=== PATIENT | male | born 1965 | race Caucasian/White ===

== ENCOUNTER → 2021-03-20 13:31 | Outpatient (CLI) | payer BC, SELFPAY | PROVIDERS: PCP Preventive Medicine Occupational Medicine; Referring Provider Internal Medicine Pulmonary Disease; Visit Provider Internal Medicine Pulmonary Disease | DX: U07.1 COVID-19 (principal) | CPT/HCPCS: 87635; C9803; U0005; U0003 ==

== ENCOUNTER 2021-03-21 10:49 | Outpatient (CLI) | payer BC, SELFPAY ==
[2021-03-21 11:03] VITALS: BP 147/102; PULSE 112; RESP 20; TEMP 37; O2SAT 95; BMI 43.2
[2021-03-21] MEDS: 0.9% Saline Lock 10 ML Syringe IV (11:05)
[2021-03-21 11:37] VITALS: BP 148/84; PULSE 97; RESP 16; TEMP 36.9; O2SAT 96
[2021-03-21 12:36] VITALS: BP 145/87; PULSE 93; RESP 18; TEMP 36.9; O2SAT 98
== END 2021-03-21 12:40 | disposition home or self-care (01) ==
LOC: MS3OUT 10:50 → MS3 10:50
PROVIDERS: PCP Preventive Medicine Occupational Medicine; Referring Provider Internal Medicine Pulmonary Disease; Visit Provider Internal Medicine Pulmonary Disease
DX: Z23 Encounter for immunization (principal); U07.1 COVID-19; E11.9 Type 2 diabetes mellitus without complications
CPT/HCPCS: J7050; M0245; Q0245; A4216

== ENCOUNTER 2024-05-20 09:04 | Observation (INO) | payer BC, SELFPAY ==
[2024-05-20] VITALS (9 sets, daily range): BP systolic 138–175; BP diastolic 74–101; PULSE 66–96; RESP 15–21; TEMP 36.1–36.8; O2SAT 95–98; BMI 45.8; BMI 42.3
--- NOTE | 2024-05-20 09:11 | EKG12_ITS ---
Test Reason : CHEST PAIN Blood Pressure : */* mmHG Vent. Rate : 82 BPM Atrial Rate : 82 BPM P-R Int : 166 ms QRS Dur : 84 ms QT Int : 374 ms P-R-T Axes : 48 -18 43 degrees QTcB Int : 436 ms Normal sinus rhythm Minimal voltage criteria for LVH, may be normal variant ( R in aVL ) Cannot rule out Anterior infarct , age undetermined Abnormal ECG Confirmed by Erick Pineda ([id number]), news videotape editor CARRIE URRUTIA ([id number]) on 05/24/2024 7:41:29 AM Referred By: Confirmed By: Erick Pineda
--- NOTE | 2024-05-20 09:11 | ED.VIS.CHEST ---
HPI History of Present Illness Chief Complaint: Chest Pain Narrative Narrative: 58-year-old male past medical history of diabetes, hypertension, presents with chest pain that has had intermittently over the last week. He states over the last week it was very brief, and in the midsternal to left side of his chest. It only lasted a few seconds, under minute if that. This morning, while he was at work, he states he was not stressed, no exertional component but he had a more persistent chest pain. He describes it as dull and achy, and it did radiate down his left arm or towards his left shoulder at least. He denies any nausea or vomiting associated with this pain, no shortness of breath, no other symptoms. His discomfort was persistent until squad arrived and they gave him nitroglycerin and aspirin. He is currently pain-free. [facility] Medical History (Updated 05/20/24 @ 13:27 by Clarence Munoz MD) Chest pain Hyperlipidemia associated with type 2 diabetes mellitus Diabetes mellitus Hypertension Home Medications ?Medication ?Instructions ?Recorded ?Last Taken ?Type amlodipine 10 mg-benazepril 40 mg 1 cap PO DAILY 03/21/21 Unknown History capsule chlorthalidone 25 mg tablet 25 mg PO DAILY 03/21/21 Unknown History glimepiride 4 mg tablet 4 mg PO DAILY 03/21/21 Unknown History metformin 1,000 mg tablet 1,000 mg PO BID 03/21/21 Unknown History empagliflozin 25 mg tablet 25 mg PO DAILY 05/20/24 Unknown History (Jardiance) insulin degludec 100 unit/mL (3 40 unit subcut QHS 05/20/24 Unknown History mL) subcutaneous pen (Tresiba FlexTouch U-100 insulin) sildenafil (pulm.hypertension) 20 20 - 100 mg PO PRN PRN sexual 05/20/24 Unknown History mg tablet activity Allergy/AdvReac Type Severity Reaction Status Date / Time codeine AdvReac dizziness Verified 03/21/21 10:57 Family History Mother CAD (coronary artery disease) Social History Smoking Status: Never smoker ROS ROS ED ROS Narrative Constitutional: No fever, no chills. HEENT: No sore throat. No neck pain. Cardiovascular: Left parasternal to left chest pain/discomfort type of chest pain. No palpitations. No pedal edema but has intermittent swelling of left lower extremity from remote injury and surgery. Respiratory: No cough, no shortness of breath. Abdominal: No abdominal pain. No nausea. No vomiting. Genitourinary: No dysuria. No hematuria. Musculoskeletal: No myalgias. No arthralgias. Neurologic: No headaches. No dizziness. No lightheadedness. EXAM Physical Exam Narrative Exam Narrative: Afebrile. Vital signs noted. Nontoxic-appearing. Does have elevated blood pressure initially at 175/101. Cardiovascular examination reveals a regular rate and rhythm. Lungs are clear to auscultation bilaterally. Abdomen is soft, nontender, without guarding or rebound. Neurological examination is nonfocal and nonlateralizing. No noted pedal edema bilaterally. Const Vital Signs: 05/20/24 09:04 05/20/24 09:12 05/20/24 11:04 Temperature 96.9 F L Temperature Source Temporal Pulse Rate 96 72 Respiratory Rate 18 21 H Blood Pressure 175/101 H 157/91 H Blood Pressure Mean 125 113 Pulse Ox 97 96 96 Oxygen Delivery Method Room Air Room Air Room Air 05/20/24 13:00 05/20/24 13:13 Temperature 98.2 F Temperature Source Pulse Rate 76 78 Respiratory Rate 15 19 H Blood Pressure 148/94 H 148/94 H Blood Pressure Mean 112 112 Pulse Ox 97 98 Oxygen Delivery Method Room Air Heart Score History: Moderately Suspicious ECG: Normal Age: >45 - <65 years Risk Factors: >/= 3 Risk Factors or History of CAD Troponin: >1 - <3 Normal Limit Score: 5 MDM MDM MDM Narrative Medical decision making narrative: Differential diagnosis includes but not limited to ACS versus pneumothorax versus aortic dissection versus pulmonary embolism. I have low suspicion for pulmonary embolism because the history and physical does not support this. He is currently pain-free and has already received nitroglycerin and aspirin per EMS. Comprehensive workup was pursued. EKG obtained interpreted by myself independently demonstrates normal sinus rhythm at 82 bpm without ectopy or acute ST changes. No STEMI. I reviewed his laboratory work and he has normal white count of 8.4, hemoglobin 16.4 with hematocrit 51.7, platelet count 231. Electrolyte panel is grossly unremarkable with a normal sodium of 140 and potassium 4.4. Creatinine normal at 0.9. Chest x-ray in 1 view interpreted by myself independently shows no acute process, no pneumonia, no pneumothorax, no widened mediastinum. I reviewed the radiology report which confirms my independent interpretation. Of significance, his initial high-sensitivity troponin is 49. Repeat at 2 hours is 61 for a delta of 12. As this is greater than 6, I feel that according to the high-sensitivity troponin that he has ruled in for ACS. I discussed the patient with Dr. Pineda with cardiology and the hospitalist. Dr. Pineda has discussed patient with Dr. Tellez, and patient will be taken to the catheterization lab from the emergency department. Cardiology did not want heparin or any other medications currently. However, he will require observation for recovery from the catheterization. I discussed patient with Dr. Negrete for observation in the PCU. Patient is in stable condition. History & Record Review Discussion w/independent historian: Patient and Family Lab Data Attestation: I reviewed the patient's lab results. Labs: Laboratory Results - last 24 hr 05/20/24 05/20/24 09:19 11:19 WBC 8.4 RBC 6.07 Hgb 16.4 Hct 51.7 MCV 85.2 MCH 27.0 MCHC 31.7 L RDW Std Deviation 44.4 H RDW Coeff of Lexa 15.0 H Plt Count 231 MPV 11.0 Immature Gran % (Auto) 0.200 Neut % (Auto) 63.9 Lymph % (Auto) 28.4 [place] % (Auto) 5.4 Eos % (Auto) 1.7 Baso % (Auto) 0.4 Absolute Neuts (auto) 5.4 Absolute Lymphs (auto) 2.38 Nucleated RBC % 0 Sodium 140 Potassium 4.4 Chloride Direct 104 Carbon Dioxide 22.2 Anion Gap 14 BUN 18 Creatinine 0.9 Estim Creat Clear Calc 132.64 Est GFR (MDRD) Non-Af 100 BUN/Creatinine Ratio 20.1 H Glucose 228 H Calcium 9.6 Troponin T High Sens 49 H Troponin T Hi Sens 2 Hr 61 H* Troponin T Hi Sens 2Hr Delta 12 Radiography Chest X-Ray - ED: 1 View, Read by ED Physician, Read by Radiologist and Normal Diagnostic Testing: Clinical Impression(s) from Imaging Studies Chest X-Ray 05/20/24 09:15 IMPRESSION: No active cardiopulmonary disease. Reading Location: [place] [id number] Management Discussion w/another healthcare provider: Hospitalist (Dr. Negrete) and [employer] Technical Assistant (Dr. Pineda, cardiology) Discharge Plan Dx/Rx/DC Orders Clinical Impression: Chest pain, Hypertension, Diabetes mellitus, Hyperlipidemia associated with type 2 diabetes mellitus, ACS (acute coronary syndrome) Disposition Disposition: Acute Care Hospital [facility]
--- NOTE | 2024-05-20 09:15 | RAD_ITS ---
PROCEDURE: CHEST 1 VIEW (PORTABLE) REASON FOR EXAM: Chest pain TECHNIQUE: Single frontal image including the chest. COMPARISON: None. FINDINGS: Lungs: Lungs clear of pneumonia and congestion. Pleura: No pleural effusions, thickening, or pneumothorax. Heart: Normal in size and configuration. Mediastinum/Bell: Unremarkable. Great vessels: Unremarkable. Bones/soft tissues: Unremarkable. RAD/Chest 1 View (Portable) IMPRESSION: No active cardiopulmonary disease. Reading Location: [place] [id number]
[2024-05-20 09:42] LABS: Absolute Lymphocyte Count 2.38 X10^3/uL (0.83-4.51); Absolute Neutrophil Count 5.4 X10^3/uL (2.0-7.7); Basophil# 0.03 X10^3/uL; Basophil% 0.4 % (0-1); Eosinophil# 0.14 X10^3/uL; Eosinophils% 1.7 % (0-5); Hematocrit 51.7 % (40-54); Hemoglobin 16.4 g/dL (13.0-16.5); Lymphocyte # 2.38 X10^3/ul (0.83-4.51); Lymphocyte % 28.4 % (19-41); Mean Corp Hgb Conc 31.7 g/dL (32-36); Mean Corpuscular Volume 85.2 fL (80-94); Monocyte# 0.45 X10^3/uL; Monocyte% 5.4 % (0-10); NRBC Flagged by Analyzer 0 % (0-5); Neutrophil # 5.36 X10^3/uL (2.7-7.7); Neutrophil % 63.9 % (47-70); Platelet Count 231 K/mm3 (150-450); RBC Distribution Width SD 44.4 fl (35.1-43.9); Red Blood Count 6.07 M/mm3 (4.6-6.2); White Blood Count 8.4 K/mm3 (4.4-11.0)
[2024-05-20 11:07] LABS: Troponin T High Sensitivity 49 ng/L (<=22)
[2024-05-20 12:15] LABS: Anion Gap 14 (5-15); BUN 18 mg/dL (4-19); BUN/Creat Ratio 20.1 RATIO (10-20); Calcium 9.6 mg/dL (7.6-11.0); Carbon Dioxide 22.2 mmol/L (22.0-29.0); Chloride 104 mmol/L (96-108); Creatinine, Serum 0.9 mg/dL (0.8-1.3); EST Glomerular Filtration Rate 100 (>60); Estimated Creatinine Clearance 132.64 ml/min; Glucose 228 mg/dL (70-99); Potassium 4.4 mmol/L (3.3-5.1); Sodium Level 140 mmol/L (133-145)
[2024-05-20 12:19] LABS: TROPONIN VARIANCE 2 HR 12; Troponin T High Sens 2 HR 61 ng/L (<=22)
--- NOTE | 2024-05-20 13:09 | PCM.CONS.C ---
Assessment & Plan Assessment/Plan (1) Diabetes mellitus: QUALIFIERS: Diabetes mellitus type: type 2 Diabetes mellitus long term care administrator insulin use: without long term care administrator use Diabetes mellitus complication status: without complication Qualified Code(s): E11.9 - Type 2 diabetes mellitus without complications PLAN: Patient is been diabetic for approximately 4 years on therapy. He is on metformin glipizide and Jardiance. (2) Hypertension: QUALIFIERS: Hypertension type: primary hypertension Qualified Code(s): I10 - Essential (primary) hypertension PLAN: Patient has been hypertensive for some time his own chlorthalidone amlodipine benazepril with what he says was adequate control in the home environment. (3) Hyperlipidemia associated with type 2 diabetes mellitus: PLAN: Patient is intolerant to all statins. He has been on niacin. I did ask him about trialing red yeast rice as it does have a mild statin in it. The other option would be to get his lipids evaluated in his see if he may not be a candidate for Repatha. (4) Chest pain: QUALIFIERS: Chest pain type: precordial pain Qualified Code(s): R07.2 - Precordial pain PLAN: The patient's symptoms of progressive chest discomfort with activity stopping with rest and then progressing to continuing for 10 to 15 minutes after resting today is consistent with accelerating angina. His EKG is not completely normal but may be related to body habitus. His enzymes are positive. I would recommend the patient undergo a left heart catheterization. The procedure risk/benefit and alternatives were explained to the patient and his in detail they voiced understanding and agrees to proceed. Dr. Tellez will be doing the procedure. The patient did eat breakfast at 630 it is currently 1330 hrs. now. The patient received aspirin but has not been heparinized and did not receive Brilinta or Plavix. The patient is not allergic to iodine. HPI Consult Data Date of Consult: 05/20/24 HPI Narrative Reason for Consultation: Chest pain with positive troponins HPI Narrative: MEDARDO ADAM, is a 58 M who presents with a 1 week history of exertional chest discomfort. Patient reports that this started out about a week ago lasting a few seconds he would notice it when he was walking fast he would stop and it would go away today he was walking it came on a stop and it lasted for 10 minutes. He and his then decided to come to the emergency department for further evaluation. EKG showed normal sinus rhythm with poor R wave progression across the precordium. His troponins were 49 and then up to 61 creating a positive delta troponin. The patient's had no recurrence of his chest symptoms since he has been in the ED. The patient has a history of diabetes he has been treated for approximately 4 years. He actually lost 68 pounds at 1 point in time but is gained some of it back. He admits this is due to dietary indiscretion. Patient also has a history of hypertension on therapy he has a history of hyperlipidemia is intolerant to statins. He is on niacin. The patient has never smoked and he has a significant family history of coronary disease on his mother side. The patient is not allergic to iodine he has never had a heart stress test or heart catheterization. The patient denies any PND orthopnea denies any lower extremity me except in his left ankle due to a remote fracture. [facility] Medical History (Updated 05/20/24 @ 13:[address] Erick Pineda MD) Chest pain Hyperlipidemia associated with type 2 diabetes mellitus Diabetes mellitus Hypertension Home Medications ?Medication ?Instructions ?Recorded ?Last Taken ?Type amlodipine 10 mg-benazepril 40 mg 1 cap PO DAILY 03/21/21 Unknown History capsule chlorthalidone 25 mg tablet 25 mg PO DAILY 03/21/21 Unknown History glimepiride 4 mg tablet 4 mg PO DAILY 03/21/21 Unknown History metformin 1,000 mg tablet 1,000 mg PO BID 03/21/21 Unknown History empagliflozin 25 mg tablet 25 mg PO DAILY 05/20/24 Unknown History (Jardiance) insulin degludec 100 unit/mL (3 40 unit subcut QHS 05/20/24 Unknown History mL) subcutaneous pen (Tresiba FlexTouch U-100 insulin) sildenafil (pulm.hypertension) 20 20 - 100 mg PO PRN PRN sexual 05/20/24 Unknown History mg tablet activity Allergy/AdvReac Type Severity Reaction Status Date / Time codeine AdvReac dizziness Verified 03/21/21 10:57 Family History Mother CAD (coronary artery disease) Social History Smoking Status: Never smoker ROS Constitutional Constitutional: Reports as per HPI Eyes Eyes: Reports systems reviewed and no addt'l complaints, except as documented ENT HEENT: Reports systems reviewed and no addt'l complaints, except as documented Cardiovascular Cardiovascular: Reports as per HPI Respiratory/Chest Respiratory/Chest: Reports as per HPI Gastrointestinal Gastrointestinal: Reports as per HPI Genitourinary Genitourinary: Reports as per HPI Musculoskeletal Musculoskeletal: Reports as per HPI Integumentary Integumentary: Reports systems reviewed and no addt'l complaints, except as documented Neurologic Neurologic: Reports systems reviewed and no addt'l complaints, except as documented Psychiatric Psychiatric: Reports systems reviewed and no addt'l complaints, except as documented Endocrine Endocrinology: Reports as per HPI Hematologic/Lymphatic Hematologic/Lymphatic: Reports systems reviewed and no addt'l complaints, except as documented Allergic/Immunologic Allergic/Immunologic: Reports as per HPI Physical Exam Narrative Patient is well-developed obese white [place] department with his at the bedside. Const alert and oriented x3 HEENT normocephalic Eyes PERRL Neck no JVD and no carotid bruits Chest inspection of chest normal Chest Narrative: Increased AP diameter Resp normal respiratory effort and clear to auscultation bilaterally Cardio regular rate, regular rhythm, S1 normal heart sound, S2 normal heart sound, no murmurs, no rub and no gallops Peripheral Pulses: radial pulses present bilateral 2+ and femoral pulses present right 1+ GI soft to palpation, non-tender and no bruits GI Narrative: Obese. Small ecchymotic areas at site of recent injections. Extremity no pedal edema Extremity Narrative: There is a brace on his left ankle. Neuro Neuro Narrative: Alert and oriented x 3 Psych mental status grossly normal Risk Stratification Risk Stratification Applicable: Yes Age >/= 65: No >/= 3 CAD Risk Factors (HTN, HLD, DM, family hx of CAD, or current smoker): Yes Aspirin Use in the Past 7 Days: No Severe Angina (>/= episodes in 24 hours): Yes EKG ST Changes >/= 0.5mm: No Positive Cardiac Marker: Yes ALBERT Risk Stratification Score: 3 ALBERT % Risk: 13% Risk Charges/Coding Visit Charges Inpatient E&M: 61646 Init Hosp L3 Objective Data Vital Signs: Vital Signs Temp Pulse Resp BP Pulse Ox O2 Del Method 96.9 F L 76 15 148/94 H 97 Room Air 05/20/24 09:04 05/20/24 13:00 05/20/24 13:00 05/20/24 13:00 05/20/24 13:00 05/20/24 13:00 Oxygen Delivery Method Room Air Weight: 328 lb 11.347 oz Body Mass Index (BMI) 45.8 Lab / Micro Data Attestation: I reviewed the patient's lab results. 05/20/24 09:19 05/20/24 09:19 Labs: Laboratory Results - last 24 hr 05/20/24 09:19: WBC 8.4, RBC 6.07, Hgb 16.4, Hct 51.7, MCV 85.2, MCH 27.0, MCHC 31.7 L, RDW Std Deviation 44.4 H, RDW Coeff of Lexa 15.0 H, Plt Count 231, MPV 11.0, Immature Gran % (Auto) 0.200, Neut % (Auto) 63.9, Lymph % (Auto) 28.4, [place] % (Auto) 5.4, Eos % (Auto) 1.7, Baso % (Auto) 0.4, Absolute Neuts (auto) 5.4, Absolute Lymphs (auto) 2.38, Nucleated RBC % 0, Sodium 140, Potassium 4.4, Chloride Direct 104, Carbon Dioxide 22.2, Anion Gap 14, BUN 18, Creatinine 0.9, Estim Creat Clear Calc 132.64, Est GFR (MDRD) Non-Af 100, BUN/Creatinine Ratio 20.1 H, Glucose 228 H, Calcium 9.6, Troponin T High Sens 49 H 05/20/24 11:19: Troponin T Hi Sens 2 Hr 61 H*, Troponin T Hi Sens 2Hr Delta 12 Rhythm Strip Rhythm Strip: Sinus Rhythm Rate: 75 Cardiology Labs/Tests 05/20/24 09:19: WBC 8.4, RBC 6.07, Hgb 16.4, Hct 51.7, MCV 85.2, MCH 27.0, MCHC 31.7 L, Plt Count 231, MPV 11.0, Immature Gran % (Auto) 0.200, Neut % (Auto) 63.9, Lymph % (Auto) 28.4, [place] % (Auto) 5.4, Eos % (Auto) 1.7, Baso % (Auto) 0.4, Absolute Neuts (auto) 5.4, Nucleated RBC % 0, Sodium 140, Potassium 4.4, Carbon Dioxide 22.2, Anion Gap 14, BUN 18, Creatinine 0.9, Est GFR (MDRD) Non-Af 100, BUN/Creatinine Ratio 20.1 H, Glucose 228 H, Calcium 9.6 Rhythm: EKG: ECHO: Stress Test: Cardiac Cath: PCI: CT Surgery: Holter monitor: EPS: PPM: CXR: Chest CT Scan: Radiography Diagnostic Testing: Radiology Impression Chest X-Ray 05/20/24 09:15 IMPRESSION: No active cardiopulmonary disease. Reading Location: [place] [id number]
--- NOTE | 2024-05-20 13:31 | HP.PCM.HOS_ITS ---
HPI - General General Date of Admission: 05/20/24 Date of Service: 05/20/24 Chief Complaint: Chest pain HPI Narrative MEDARDO ADAM, is a 58 M who presented to the emergency department [facility] on 05/20/2023 with a chief complaint of chest pain. Chest pain began about a week ago and was exertional in nature. Initially it would last a few seconds and would go away after he stopped exerting himself. It took about 10 minutes to resolve. Given the fact it has been persistent and his convinced him to come to the emergency department. He does have a history of essential hypertension, diabetes and is morbidly obese with a BMI of 42.3. He does have a family history of coronary disease in his mother. He is a never smoker. Pain was achy in nature and did radiate down his left arm and to his shoulder but no associated nausea or vomiting, no shortness of breath or diaphoresis was noted. Squad gave him nitroglycerin and aspirin he was pain- free at the time of presentation to the emergency department. Vital signs on presentation showed temperature 96.9, heart rate 96, respiratory 18, initial blood pressure was 175/101 with repeat of 157/91, and pulse ox was 97% on room air. CBC was unremarkable. Chemistry panel was unremarkable other than a serum glucose of 228. A1c was obtained and found to be 7.2. Initial troponin was 49 with a 2-hour of 63 indicative of myocardial ischemia based on this his troponin T high-sensitivity. EKG showed sinus rhythm with poor R wave progression across the precordium. Cardiology was consulted by the emergency department and recommended taking him directly to the Project Coordinator. [facility] Medical History Chest pain Hyperlipidemia associated with type 2 diabetes mellitus Diabetes mellitus Hypertension Home Medications ?Medication ?Instructions ?Recorded ?Last Taken ?Type amlodipine 10 mg-benazepril 40 mg 1 cap PO DAILY 03/21 Unknown History capsule chlorthalidone 25 mg tablet 25 mg PO DAILY 03/21/21 Un known History glimepiride 4 mg tablet 4 mg PO DAILY 03/21/21 Unkno wn History metformin 1,000 mg tablet 1,000 mg PO BID 03/21/21 Unk nown History empagliflozin 25 mg tablet 25 mg PO DAILY 05/20/24 Unk nown History (Jardiance) insulin degludec 100 unit/mL (3 40 unit subcut QHS Unknown History mL) subcutaneous pen (Tresiba FlexTouch U-100 insulin) sildenafil (pulm.hypertension) 20 20 - 100 mg PO PRN P RN sexual 05/20/24 Unknown History mg tablet activity Allergy/AdvReac Type Severity Reaction Status Date / Time codeine AdvReac dizziness Verified 03/21/21 10:57 Family History Mother CAD (coronary artery disease) Surgical History no surgical history no surgical history Social History (Updated 05/20/24 @ 18:[address] Emelyn Negrete DO) household members: spouse housing: house Smoking Status: Never smoker alcohol intake: never substance use type: does not use ROS Constitutional Constitutional: Denies anorexia, change in weight, chills, fatigue, fever(s), malaise, night sweats, weakness or other Eyes Eyes: Denies blurry vision, change in eye color, change in vision, discharge from eye(s), double vision, erythema, eye pain, loss of vision or other ENT HEENT: Denies abnormal hearing, dysphagia, ear pain, epistaxis, headache(s), hearing loss, nasal congestion, nasal discharge, post nasal drip, sinus pressure, sore throat or other Cardiovascular Cardiovascular: Reports chest pain and other Details: Chest pain radiated to left shoulder ; Denies claudication, dyspnea on exertion, edema, lightheadedness, orthopnea, palpitations, paroxysmal nocturnal dyspnea, rapid heart rate or syncope Respiratory/Chest Respiratory/Chest: Denies cough, dyspnea, excessive phlegm production, hemoptysis, productive cough, shortness of breath at rest, shortness of breath with exertion, wheezing or other Gastrointestinal Gastrointestinal: Denies abdominal pain, coffee ground emesis, constipation, diarrhea, dyspepsia, hematemesis, hematochezia, loose stools, melena, nausea, vomiting or other Genitourinary Genitourinary: Denies burning urination, difficulty urinating, dysuria, hematuria, nocturia, urinary frequency, urinary hesitancy, urinary incontinence, urinary urgency or other Musculoskeletal Musculoskeletal: Denies arthralgias, back pain, joint pain, joint stiffness, joint swelling, myalgias, neck pain or other Neurologic Neurologic: Denies abnormal gait, abnormal speech, confusion, disequilibrium, dizziness, focal weakness, headache(s), numbness, paresthesias, seizure-like activity, seizures, syncope, tingling, tremor(s) or other Psychiatric Psychiatric: Denies anxiety, depression, homicidal ideation, suicidal ideation or other Endocrine Endocrinology: Denies change in body appearance, cold intolerance, excessive sweating, heat intolerance, polydipsia, polyuria or other Hematologic/Lymphatic Hematologic/Lymphatic: Denies anemia, easy bleeding, easy bruising, lymphadenopathy or other Allergic/Immunologic Allergic/Immunologic: Denies rhinitis, hives, eczemia, asthma or other Vital Signs Vital Signs Vital Signs: 05/20/24 09:04 05/20/24 09:12 05/20/24 11:04 Temperature 96.9 F L Temperature Source Temporal Pulse Rate 96 72 Respiratory Rate 18 21 H Blood Pressure 175/101 H 157/91 H Blood Pressure Mean 125 113 Pulse Ox 97 96 96 Oxygen Delivery Method Room Air Room Air Room Air 05/20/24 13:00 05/20/24 13:13 Temperature 98.2 F Temperature Source Pulse Rate 76 78 Respiratory Rate 15 19 H Blood Pressure 148/94 H 148/94 H Blood Pressure Mean 112 112 Pulse Ox 97 98 Oxygen Delivery Method Room Air Weight Weight: 149.1 kg Body Mass Index (BMI) 45.8 Physical Exam Const alert, oriented x3, no apparent distress and well nourished General Appearance: cooperative HEENT normocephalic, head/scalp atraumatic, hearing grossly normal bilaterally and moist oral mucous membranes HEENT Narrative: Mallampati 3, no thrush Eyes EOMs intact bilaterally and conjunctivae normal Neck supple Neck Narrative: Trachea midline, neck is short and thick Resp normal respiratory effort, no retractions, no use of accessory muscles and clear to auscultation bilaterally Auscultation: Negative for rales, rhonchi or wheezes Cardio regular rate, regular rhythm, S1 normal heart sound, S2 normal heart sound, no murmurs, no rub, no gallops and no clicks GI normal to inspection, nondistended, normoactive bowel sounds, soft to palpation and non-tender GI Narrative: Protuberant abdomen Extremity Extremity Narrative: Trace swelling left lower extremity which is chronic from previous ankle fracture, no sinus or clubbing, right lower extremities within normal limits, post cath compression device on right wrist Neuro oriented x3, moves all extremities and no focal motor deficits Speech: speech normal Psych affect normal Results Lab / Micro Data 05/20/24 09:19 05/20/24 09:19 Labs: Laboratory Results - last 24 hr 05/20/24 09:19: WBC 8.4, RBC 6.07, Hgb 16.4, Hct 51.7, MCV 85.2, MCH 27.0, MCHC 31.7 L, RDW Std Deviation 44.4 H, RDW Coeff of Lexa 15.0 H, Plt Count 231, MPV 11.0, Immature Gran % (Auto) 0.200, Neut % (Auto) 63.9, Lymph % (Auto) 28.4, [place] % (Auto) 5.4, Eos % (Auto) 1.7, Baso % (Auto) 0.4, Absolute Neuts (auto) 5.4, Absolute Lymphs (auto) 2.38, Nucleated RBC % 0, Sodium 140, Potassium 4.4, Chloride Direct 104, Carbon Dioxide 22.2, Anion Gap 14, BUN 18, Creatinine 0.9, Estim Creat Clear Calc 132.64, Est GFR (MDRD) Non-Af 100, BUN/Creatinine Ratio 20.1 H, Glucose 228 H, Calcium 9.6, Troponin T High Sens 49 H 05/20/24 11:19: Troponin T Hi Sens 2 Hr 61 H*, Troponin T Hi Sens 2Hr Delta 12 Rhythm Strip Rhythm Strip: Sinus Rhythm Rate: 75 Imaging Radiology Impression Chest X-Ray 05/20/24 09:15 IMPRESSION: No active cardiopulmonary disease. Reading Location: [facility] Assessment & Plan Assessment/Plan (1) ACS (acute coronary syndrome): (2) Chest pain: QUALIFIERS: Chest pain type: precordial pain Qualified Code(s): R 07.2 - Precordial pain (3) Hyperlipidemia associated with type 2 diabetes mellitus: (4) Hypertension: QUALIFIERS: Hypertension type: primary hypertension Qualified Code(s): I10 - Essential (primary) hypertension (5) Diabetes mellitus: QUALIFIERS: Diabetes mellitus type: type 2 Diabetes mellitus medical terminologist insulin use: without longterm use Diabetes mellitus complication status: without complication Qualified Code(s): E11.9 - Type 2 diabetes mellitus without complications (6) Morbid obesity: PLAN: Plan Patient was taken to the Project Coordinator from the emergency department at which time a left heart catheterization was performed. Estimated EF was 65% via LV gram, left main had mild luminal irregularities, LAD had 100% stenosis with collaterals, first diagonal had 50% stenosis in the ostium and proximal he had 95% stenosis, circumflex had mild diffuse disease, RCA showed moderate to severe diffuse disease in the RPDA as well as collaterals noted from the RCA to the LAD with mid RCA stenosis at 60%. Valvular assessment was unremarkable. Given the findings on his cardiac catheterization it was recommended that patient be transferred to tertiary center for evaluation for cardiothoracic surgery. While hospitalized he was maintained on his antihypertensives and started on metoprolol 25 mg daily. His oral antihyperglycemic agents were held except for his Jardiance which was continued. He was maintained on his basal insulin and sliding scale was utilized. Dr. Pineda called [facility] and the patient was accepted for transfer by Dr. Cosby and a bed became available on the evening of 05/20/2023. The patient was transferred there in stable condition. Discharge diagnoses: ACS Multivessel coronary disease DM-2 Essential hypertension Hyperlipidemia ED Morbid obesity Charges/Coding Visit Charges OBSV E&M: 06763 Observ/hosp same date L2
[2024-05-20 13:45] LABS: Bedside Glucose 73 mg/dL (74-106)
[2024-05-20 14:01] LABS: TROPONIN VARIANCE 4 HR 14; Troponin T High Sens 4 HR 63 ng/L (<=22)
--- NOTE | 2024-05-20 15:35 | CL.D_ITS ---
Patient Name: MEDARDO ADAM Study Date: 05/20/2024 Performing: Courtney Tellez MD Ht: inches cm : 1965 Wt: lbs kg Age: 58 Gender: male BSA: PROCEDURE(S) PERFORMED DC01-([id number])LHC/COR/LV CLINICAL PROFILE AND INDICATIONS Indications: NSTEMI Heart Failure: None CONCLUSIONS CAD as described. LVEF is 65%. No significant aortic stenosis or mitral regurgitation. RECOMMENDATIONS Referred to tertiary center for heart team approach to revascularization DESCRIPTION OF PROCEDURE The patient arrived to the procedure lab. The risks and benefits of the procedure as well as a full description of our services here and current unavailability of surgical backup were fully explained to the patient and/or their significant other prior to the catheterization. The Timeout was completed, verifying the correct patient and procedure. The patient's procedural site was prepped and draped in the usual fashion. Local anesthetic was given subcutaneously to right radial region with Lidocaine 2%. Using a modified Seldinger technique, arterial access was obtained via the right radial artery, a 6Fr sheath was inserted. Left Coronary Artery selective angiography was performed in multiple views using a 5 Fr. JL3.5 catheter. Left Ventriculography was performed in BLANKENSHIP projection using a 5 Fr. JR4. LV to AO pullback pressures were then recorded. Right Coronary Artery selective angiography was then performed in multiple views using a 5 Fr. JR 4 catheter.The arterial sheath was pulled and a TR Band was applied for hemostasis CORONARY ANGIOGRAPHY DOMINANCE: Right Dominant LEFT HEART ASSESSMENT Left Ventricular Ejection Fraction: by LV Gram 65 % LEFT MAIN: Mild luminal irregularities LEFT ANTERIOR DESCENDING ARTERY: MID LAD: 100 % Stenosis DIAGONAL 1: Ostial - 50 % Stenosis, Proximal - 95 % Stenosis CIRCUMFLEX ARTERY: Mild diffuse disease RIGHT CORONARY ARTERY: Moderate to severe diffuse disease in the RPDA. Collaterals noted from the RCA to the LAD MID RCA: 60 % Stenosis VALVE FINDINGS: No Aortic Valve Stenosis No Mitral Insufficiency COMPLICATIONS No Complications PROCEDURE MEDICATIONS Fentanyl 50 mcg IV Versed 1 mg IV Oxygen: 2 L/min via nasal cannula Heparin given IA 05/20/2024 14:18:31 Verapamil 2.5mg, Ntg 100mcgs, 3000 units of Heparin given IA 05/20/2024 14:18:31 SUMMARY OF HEMODYNAMIC DATA Time AIR REST ECG 14:02:44 AO 107/77 (92) SA 14:20:42 LV 153/-4, 23 14:25:49 LV 143/-2, 12 14:25:57 LV 132/0, 0 14:27:01 LVp 134/8, 13 14:27:13 AOp 121/66 (89) 14:27:20 Signed By Courtney Tellez MD On 05/20/2024 15:35:07 Courtney Tellez MD
--- NOTE | 2024-05-20 18:17 | NURSING ---
Called report to [facility]. Spoke with HAKEEM Ignacio.
[2024-05-20 18:45] LABS: Hemoglobin A1c 7.2 % (<=5.6)
[2024-05-20 18:50] LABS: Bedside Glucose 153 mg/dL (74-106)
[2024-05-20] MEDS: 0.9% Saline Lock 10 ML Syringe IV (21:11)
[2024-05-20] MEDS: Insulin Glargine-YFGN 100 UNIT/ML Pen 40 UNIT SC (21:15)
[2024-05-20] MEDS: Metoprolol Tartrate 25 MG Tablet PO (21:15)
[2024-05-20] MEDS: Enoxaparin 40 MG/0.4 ML Syringe SC (21:16)
[2024-05-20 22:51] LABS: Bedside Glucose 139 mg/dL (74-106)
== END 2024-05-20 19:00 | disposition short-term general hospital (02) ==
LOC: ED 13:27 → PCU 19:00 → CLINP 05-21 12:54 → PCU 05-21 12:54
PROVIDERS: Admitting Provider Internal Medicine; Emergency Provider Emergency Medicine; PCP Preventive Medicine Occupational Medicine; Visit Provider Internal Medicine
DX: I21.4 Non-ST elevation (NSTEMI) myocardial infarction (principal); I24.9 Acute ischemic heart disease, unspecified; E66.01 Morbid (severe) obesity due to excess calories; Z68.41 Body mass index [BMI] 40.0-44.9, adult; Z68.42 Body mass index [BMI] 45.0-49.9, adult; E11.69 Type 2 diabetes mellitus with other specified complication; Z79.4 Long term (current) use of insulin; Z79.84 Long term (current) use of oral hypoglycemic drugs; E78.5 Hyperlipidemia, unspecified; I10 Essential (primary) hypertension; I25.10 Atherosclerotic heart disease of native coronary artery without angina pectoris; Z79.899 Other long term (current) drug therapy; Z82.49 Family history of ischemic heart disease and other diseases of the circulatory system
CPT/HCPCS: 71045; 80048; 82962; 83036; 84484; 85025; 93005; 93458; 96372; 99152; 99153; 99221; 99285; Q9967; A4216; C1769; C1894; G0378

== ENCOUNTER → 2024-06-04 | Outpatient (CLI) | payer BC, SELFPAY ==
--- NOTE | 2024-06-04 13:49 | PCM.CR.HP2 ---
CR - History & Physical General Arrival date:: 06/04/24 Arrival time:: 13:50 Date of Referral:: 05/27/24 Date of CR Evaluation:: 06/04/24 Referring Physician: Dr. Miriam Dr, Rea Primary Diagnosis: PCI with stenting, NSTEMI History of Present Cardiac Event Onset Date Acute Myocardial Infarction within 12 months:: Yes PTCA or coronary stenting:: Yes (onset 05/22/2024) Medications Ambulatory Orders ?Medication ?Instructions ?Recorded amlodipine 10 mg-benazepril 40 mg 1 cap PO DAILY 03/21/21 capsule chlorthalidone 25 mg tablet 25 mg PO DAILY 03/21/21 glimepiride 4 mg tablet 4 mg PO DAILY 03/21/21 metformin 1,000 mg tablet 1,000 mg PO BID 03/21/21 empagliflozin 25 mg tablet 25 mg PO DAILY 05/20/24 (Jardiance) insulin degludec 100 unit/mL (3 40 unit subcut QHS 05/20/24 mL) subcutaneous pen (Tresiba FlexTouch U-100 insulin) sildenafil (pulm.hypertension) 20 20 - 100 mg PO PRN PRN sexual 05/20/24 mg tablet activity Allergies Allergies codeine Adverse Reaction (Verified 03/21/21 10:57) dizziness Sleep Disorder Evaluation Hx of Sleep Apnea: No Do you snore loudly (louder than talking or can be heard through closed doors)?: No Do you often feel tired/ fatigued/ sleepy during daytime?: No Has anyone observed you stop breathing during sleep?: No History of Hypertension (for STOP score): Yes STOP Results: Negative Advanced Directives Advanced Directives Power of Floor Framer: No Living Will: No Advance Directives Information Provided: No Advance Directives on File: No DNR Order?:: No Past Medical History Covid-19 Screening Physicial Symptoms Other Clinical Concerns Exposure Risk Pertinent Comorbidities Has a serious heart condition:: Yes Diabetic:: Yes Past Medical Illness Past Medical History (Updated 06/01/24 @ 10:45 by Natalie Cage) Hyperlipidemia associated with type 2 diabetes mellitus E11.69, E78.5 Diabetes mellitus E11.9 Hypertension I10 NSTEMI (non-ST elevated myocardial infarction) (05/20/24) I21.4 Atherosclerotic heart disease of [place] coronary artery without angina pectoris (05/20/24) I25.10 Morbid obesity E66.01 Chest pain R07.9 Past Surgical History Past Surgical History (Updated 06/01/24 @ 10:44 by Natalie Cage) Stented coronary artery (05/22/24) Z95.5 Xience NEAL 3.5 X 38 & 3.0 X 23 to LAD and 2.5 X 23 to Xience DEX to ostial -proximal D1 in mini-crush fashion; kissing balloon angioplasty on LAD-D1 bifurcation per Dr. Danielito Spencer @ [facility] Family History Summary Family History Mother CAD (coronary artery disease) Social History Smoking History Smoking Status: Never smoker Hx Tobacco Use: No Alcohol Use Alcohol Usage: No Substance Abuse Hx Substance Use: No Occupation Occupation (List type of work in comments):: Employed Hours worked per day:: 8 Social Environment Status Marital Status: Current Living Arrangements Living Environment:: Spouse Children How many children do you have?: 2 Do any of your children live nearby?: Yes Safety Do you feel safe in your surroundings?: Yes Assistance Do you need any assistance at home?: no Review of Systems Review of Systems Hints Review of Present Symptoms: Reports Shortness of Breath with Exertion, Fatigue, Appetite - Normal and Sleep - Normal; Denies Shortness of Breath at Rest, PVD, Operative Discomfort, Angina, Wound Healing, Dizziness/Lightheadedness, Heart Arrhythmia/Irregularities, Appetite - Special Diet or Sexual Changes Pain Is Patient Pain Free?: No Pain Location: other (ankle) Pain Level: 4/10 Risk Factor Assessment Chief Complaint Chief Complaint: PCI with stenting, NSTEMI Vital Signs Pulse Ox: 96 Blood Pressure: 140/70 Pulse Pulse Rate: 75 Pulse Rhythm: Regular Hypertension How long have you been treated?: 7-10 years Blood Pressure Sitting - Right Arm: 140/70 Diabetes Diabetic History: Type II Obesity Height: 5 ft 11 in Weight:: 290 lb Weight in Pounds: 290.0 lbs Body Mass Index (BMI): 40.4 Nutritional Referral for Obesity: No Physical Inactivity Physical Inactivity: Reg Exercise 30 min/day Risk Stratification Risk Guidelines: Lowest Risk: Risk Factor for Smoking, Moderate Risk: Risk Factor for Sedentary Lifestyle and Risk Factor for Depression and Highest Risk: Risk Factor for Dyslipidemia, Risk Factor for Diabetes, Risk Factor for Obesity and Risk Factor for Hypertension For Smoking Smoking Risk Guidelines For Dyslipidemia Dyslipidemia Risk Guidelines For Diabetes Mellitus Diabetes Risk Guidelines For Obesity/Overweight Obesity/Overweight Risk Guidelines For Hypertension Hypertension Risk Guidelines For Sedentary Lifestyle Sedentary Lifestyle Risk Guidelines For Depression Depression Risk Guidelines Family History Family History Mother CAD (coronary artery disease) Motivation Motivation to Participate On a scale of 1 to 10, how prepared are you to commit to attending program?: 9 What do you see as barriers to successfully being able to complete the program?: nothing What do you see as the benefits of succesfully completing the program? In other words, what do you hope to get out of participating in the program?: endurance, feel better Are there issues you are dealing with that will interfere with completing the program?: no Do you have a spouse or signficant other, family or friends who will help support you to complete the program?: yes
--- NOTE | 2024-06-04 13:56 | PCM.CR.ITP ---
Diagnosis General Information Admitting Diagnosis: PCI with stenting, NSTEMI Personal Learning Style:: Audio/Visual Barriers to Learning: No Barriers Stage of change r/t lifestyle modifications:: Contemplation Gave educational material for:: Treating Heart Disease, How The Heart Works, What it means to have Heart Disease, How Coronary Artery Disease is Diagnosed, Heart Procedures, What Heart Medications Do, Risk Factors & Modifications, Living an Active Life, Nutrition, Emotions & Heart Disease, Stress Management & Relaxation and Sleep Disorders & Heart Disease Education/Goals Cardiac Rehabilitation Goals Personal Goals: Initial Assessment: Improve knowledge of cardiac disease, Improve muscle strength and endurance, Improve diet and eating habits (eat healthier) and Control risk factors (learn risk factor modification) Scale for measuring improvement of personal goals Diagnosis & Disease Process Outcomes/Goals: Pt IDs own risk factors & lifestyle modifications by Session 10, Verbalizes symptoms of angina & response by session 3., Pt independently manages and Other Additional Outcomes/Goals: Plan/Interventions: Assist Pt to ID & engage in lifestyle modification to reduce CVD risk, Instruct on individual risk factors, Review symptoms of angina & emergency actions, Review secondary diagnosis & identify educational needs. and Other see comment 30 day Reassessments:: Not Met 30 day Reassessments:: Not Met 30 day Reassessments:: Not Met 30 day Reassessments:: Not Met Safety Referral to Physical Therapy: No Referral to [facility] Case Management: No Fall Risk Assessed:: Yes Assistive Devices:: None Exercise - Initial Assessment Visit Date of Eval: 06/04/24 (initial eval ) Mets: Pre-: >5 METS for 30 minutes by discharge Physician Prescribed Exercise Modalities: Treadmill, Rower, Nadine Guyne AD-7, SciFit Stepper, [employer] Pro-II Ergometer and [employer] Lateral [employer] Frequency: 3x/week for 12 weeks [36 sessions] Intensity: 60-80% of age predicted maximum heart rate reserve Duration: 30 - 45 minutes Current METSs:: 3 Target Heart Rate:: 97-122 Resting Blood Pressure: 140/70 EKG Type: NSR Outcomes & Goals Goals:: Verbalizes understanding of THR, RPE & goal METS by session 6, Documents in home exercise log/reports 30 min aerobic 5 day/wk by DC, Demonstrates accurate pulse taking by DC and Other additional outcome/goals: see below Intervention & Plan Exercise Program Goals: Instruct on personal THR & RPE, Instruct on MET level & personal MET goal, Show patient to take own pulse /validate performance until accurate, Instruct on home exercise and Other additional plan/int Physical Activity Home Exercise Physical Activity - Home Exercise: Safe Exercise, Warm-up, Self-monitoring, Cool-Down, Home Exercise > 30 min Daily and Sitting Time <3 hours/daily Outcomes & Goals Outcomes/Goals: Demonstrates correct Warm-up/exercise Cool-Down (S3) if = 2.5 METs, Verbalizes symptoms of exercise intolerance by Session 3 (S3), Demonstrate safe equipment use (S3) & follows exercise prescrition (6) and Other: See below Intervention & Plan Plan/Intervention: Instruct warm-up & cool-down if exercising at > 2 METs, Instruct on symptoms of exercise intolerance & actions to take, Instruct & monitor on saf, Assess intial functional capacity & safety risk and Other See below Nutrition - Initial Assessment Program Goals Nutrition Program Goals Patient has diagnosis of Hyperlipidemia (ICD E78)?: Yes Visit Date of Eval: 06/04/24 (initial eval ) Cholesterol/Lipids (Other Core Measures) Determine presence & major risk factors that modify LDL goal: Hypertension or hypertensive medication, Low HDL cholesterol <40 mg/dL*, Family history of premature CHD in Male < 55 years: female <65 yearsFa and Age men > 45 years; women >/= 55 years Outcomes/Goals: Pt IDs own risk factors & lifestyle modifications by Session 10, Verbalizes symptoms of angina & response by session 3., Pt independently manages and Other Additional Outcomes/Goals: Intervention/Plan: Advocate for lipid panel cholesterol medication if applicable, Instruct on personal lipid levels & lipid goals/NCEP guidelines, Instruct on cholesterol and Other additional plan/int Diabetes (Other Core Measures) Diabetes Type: Diagnosis Type II ICD-10 E11 Insulin dependent injection/pump?: Yes Non-Insulin Dependent?: Yes Do you monitor your blood sugar at home?: Yes Referral to Diabetic Clinic:: No Weight Mgt (Other Care) Height: 5 ft 11 in Weight:: 290 lb BMI: 40.4 Diagnosis Overweight/Obesity BMI> 30% ICD-10 E66: Yes Diagnosis High BMI/Morbid Obesity BMI> 35% ICD-10 Z68: Yes Outcomes/Goals: Pt sets, maintains & shows weight loss goal & trend during rehab and Other additional outcomes/goals Intervention/Plan: Instruct on ideal BMI & set weight loss goal w/patient, Assist pt to ID & incorporate diet changes for weight loss by S9, Refer to Structured Weight Loss program as appropriate, Encourage goal of using 250-300dcal per session for weight loss and Other additional plan/interventions Healthy Eating Habits Will attend diet classes:: Yes Outcomes/Goals:: Consume diet rich in vegs,fruits,whole grain/high fiber,fish,lean meat, Limit sat/trans fats,cholesterol & added salts & sugars and Other additional outcome/goals: Intervention/Plan:: Assess current eating habits and Other Additional plan/interventions Education Gave educational materials for:: Signs & symptoms of hypoglycemia, Signs & symptoms of hyperglycemia, Relate diabetes to coronary artery disease and Healthy eating Core - Initial Assessment Visit Date of Eval: 06/04/24 (initial eval ) Medication Compliance Preventative Medication(s):: Aspirin, LAZARA inhibitor, Ticagrelor/P2Y12 inhibitor and Beta james H/O mental health issues: depression, anxiety, or addiction?: No Doesn?t believe in the benefits of treatment?: No Believes medications are unnecessary or harmful?: No Has a concern about medication side effects?: No Expresses concern over the cost of medications?: No Outcomes/Goals: Verbalizes medications,desired effect & common side effects @ DC, Pt self-reports following medication regimen, Keeps card in wallet w/medications listed by DC and Other additional outcome/goals: Interventions/plans: Instruct on medication effects & side effects, Review medication list w/patient every two weeks, Instruct importance of taking meds as ordered & assist problem solving and Other additional Tobacco Use Tobacco Use: Non-smoker Hypertension Hypertension Diagnosis:: Hypertension ICD-10 I10 Resting Blood Pressure:: 140/70 [place] [employer] Hypertension Guidelines Outcomes/Goals: Able to verbalize/achieve optimal blood pressure <130/80, Incorporates diet changes & exercise for blood pressure control by DC and Other additional outcomes/goals Interventions/plan: Instruct on optimal blood pressure, hypertension & medications, Instruct on effects of sodium, alcohol, stress, exercise &hypertension and Other additional plan/interventions Tobacco Cessation Referral Smoking Cessation Referral:: No Individual Education/Counseling:: No Education Schedule Given:: Yes Psychosocial - Initial Assess VIsit Date of Eval: 06/04/24 (initial eval ) History of previous Mental disease:: No Target Goals Target Goals Psychosocial Test Tool Used:: Non[employer] Power QOL Cardiac and PHQ-9 Questionnaire phq-9 Severity Referral to Behavioral Health PS - Interventions: Yes: Attend Stress Management Classes Outcomes/Goals: See list Psychosocial Outcomes/Goals:: ID's personal stressors & 2 strategies to manage stress by discharge and Other Additional outcome/goals: Intervention/Plan: See List Interventions/Plan:: Assess stressors,coping strategies & signs of derpression on admission, Instruct/assist pt to develop coping & personal stress Mgt strategies, Refer to Behavioral Health if appropriate, Refer to Physician if appropriate, Instruct patient to recognize signs & symptoms of depression, Instruct patient to recog and Other additional plan/intervention Patient Health Questionnaire PHQ-9 Screening Initial Assessment: 1. Little interest or pleasure in doing things: Not at all 2. Feeling down, depressed, or hopeless: Not at all 3. Trouble falling or staying asleep, or sleeping too much: Not at all 4. Feeling tired or having little energy: More than half the days 5. Poor appetite or overeating: More than half the days 6. Feeling bad about yourself -- or that you are a failure or have let yourself or your family down: Not at all 7. Trouble concentrating on things, such as reading the newspaper or watching television: Not at all 8. Moving or speaking so slowly that other people could have noticed. Or the opposite - being so fidgety or restless that you have been moving around a lot more than usual: Not at all 9. Thoughts that you would be better off , or of hurting yourself in some way: Not at all How difficult have these problems made it for you to do your work, take care of things at home, or get along with other people?: Somewhat difficult Total Score: 4 VLADISLAV-Q SV Test Statements CAD is a disease of the arteries in the heart: False Examples of risk factors for heart disease: True Angina is chest pain or discomfort: I Don't Know The benefits of resistance training include: True Eating more meat and dairy products: False Anti-platelet medications such as aspirin are important: True The only effective way to manage stress: False An exercise warm-up slowly increases heart rate: True Prepared, processed foods usually have high sodium: True Depression is common after a heart attack: I Don't Know The statin medications lower cholesterol: True To control blood pressure, lower the amount of sodium: True If someone gets chest discomfort during walking: False Transfats are partially hydrogenated vegetable oils: I Don't Know Sleep apnea that is not treated increases the risk: False To control cholesterol, one should become a vegetarian: False Someone knows if he/she is exercising at the right level: True Diabetes cannot be prevented with exercise & health eating: False Stress is a large risk for heart attack: True A diet that can help lower blood pressure is rich in: True Total Score Total Correct Responses: 17 Self-Efficacy 6-Item Scale Initial Assessment: We would like to know how confident you are in doing certain activities. Please select your confidence level for: Fatigue Select Number: 9 Physical Discomfort or Pain Select Number: 9 Emotional Distress Select Number: 10 Other Symptoms or Health Problems Select Number: 10 Different Tasks and Activities Select Number: 10 Medication Select Number: 9 Total Score:: 9 Nutrition Survey Nutrition Survey Instructions Scoring Instructions Nutrition Survey Initial: Have you lost >10 lbs over the past 2 months without trying?: No Are you following a special diet at home for diabetes, low fat, or low salt?: Yes Are you interested in meeting with a dietitian for help understanding your diet?: No Do you eat less than 3 meals a day?: No Do you eat fatty meats (issa, sausage, ribs, etc), fried foods, desserts, large amounts of salad dressings, margarine, butter, or cheese most days?: Yes Do you have food allergies? [Enter types in comment field]: No Do you eat in restaurants more than 3 times a week?: No Do you season food with salt, seasoning salt, or garlic salt?: No Do you used canned, boxed, frozen meals, or soups, seasoning packets?: No Total Score:: 2 Exercise - 30-day Assessment Physician Prescribed Exercise Modalities: Treadmill, Rower, [employer] AD-7, SciFit Stepper, SciFit Pro-II Ergometer and SciFit Lateral [employer] Exercise - 60-day Assessment Physician Prescribed Exercise Modalities: Treadmill, Rower, [employer] AD-7, SciFit Stepper, SciFit Pro-II Ergometer and SciFit Lateral [employer] Exercise - 90-day Assessment Physician Prescribed Exercise Modalities: Treadmill, Rower, Schwinn [employer]yne AD-7, SciFit Stepper, SciFit Pro-II Ergometer and SciFit Lateral [employer] Exercise - Final/Discharge Physician Prescribed Exercise Modalities: Treadmill, Rower, Schwinn Airdyne AD-7, SciFit Stepper, SciFit Pro-II Ergometer and SciFit Lateral Mignon Frequency: 3x/week for 12 weeks [36 sessions] Intensity: 60-80% of age predicted maximum heart rate reserve Current METSs:: 3 Target Heart Rate:: 97-122 Nutrition - 30-Day Assessment Weight Mgt (Other Care) Height: 5 ft 11 in Weight:: 290 lb BMI: 40.4 Nutrition - 60-Day Assessment Weight Mgt (Other Care) Height: 5 ft 11 in Weight:: 290 lb BMI: 40.4 Core - Final Assessment Hypertension Resting Blood Pressure:: 140/70 [place] [employer] Hypertension Guidelines Core - 60-Day Assessment Hypertension Resting Blood Pressure:: 140/70 [place] [employer] Hypertension Guidelines Psychosocial - 30-Day Assess Target Goals Target Goals Referral to Behavioral Health PS - Interventions: Yes: Attend Stress Management Classes Psychosocial - 60-Day Assess Target Goals Target Goals Referral to Behavioral Health PS - Interventions: Yes: Attend Stress Management Classes Psychosocial - 90-Day Assess Target Goals Target Goals Referral to Behavioral Health PS - Interventions: Yes: Attend Stress Management Classes Psychosocial - Final Assessmen Target Goals Target Goals Referral to Behavioral Health PS - Interventions: Yes: Attend Stress Management Classes Nutrition - 90-Day Assessment Weight Mgt (Other Care) Height: 5 ft 11 in Weight:: 290 lb BMI: 40.4 Nutrition - Final Assessment Program Goals Patient has diagnosis of Hyperlipidemia (ICD E78)?: Yes Weight Mgt (Other Care) Height: 5 ft 11 in Weight:: 290 lb BMI: 40.4
[2024-06-04 14:09] VITALS: BP 140/70; PULSE 75; O2SAT 96
[2024-06-04 14:49] VITALS: BP 140/70; BMI 40.4
[2024-06-04 14:57] VITALS: BP 140/70
[2024-06-04 14:58] VITALS: BMI 40.4
== END | disposition home or self-care (01) ==
PROVIDERS: PCP Preventive Medicine Occupational Medicine; Referring Provider Internal Medicine Cardiovascular Disease; Visit Provider Internal Medicine Cardiovascular Disease
DX: I25.2 Old myocardial infarction (principal); E66.01 Morbid (severe) obesity due to excess calories; Z79.4 Long term (current) use of insulin; E11.69 Type 2 diabetes mellitus with other specified complication; I10 Essential (primary) hypertension; I25.10 Atherosclerotic heart disease of native coronary artery without angina pectoris; Z95.5 Presence of coronary angioplasty implant and graft; Z79.84 Long term (current) use of oral hypoglycemic drugs; Z79.899 Other long term (current) drug therapy

== ENCOUNTER 2024-06-21 15:15 | Outpatient (RCR) | payer BC, SELFPAY ==
[2024-06-04 14:49] VITALS: BMI 40.4
== END 2024-06-21 23:59 ==
LOC: CR 15:15
PROVIDERS: PCP Preventive Medicine Occupational Medicine; Referring Provider Internal Medicine Cardiovascular Disease; Visit Provider Internal Medicine Cardiovascular Disease
DX: Z95.5 Presence of coronary angioplasty implant and graft (principal); I21.4 Non-ST elevation (NSTEMI) myocardial infarction; I24.9 Acute ischemic heart disease, unspecified; I25.10 Atherosclerotic heart disease of native coronary artery without angina pectoris; R07.2 Precordial pain
CPT/HCPCS: 93798

== ENCOUNTER 2024-07-21 15:15 | Outpatient (RCR) | payer BC, SELFPAY ==
[2024-06-04 14:49] VITALS: BMI 40.4
--- NOTE | 2024-06-23 15:08 | EKG12_ITS ---
Test Reason : ATRIAL FIBRILLATION Blood Pressure : */* mmHG Vent. Rate : 93 BPM Atrial Rate : 234 BPM P-R Int : * ms QRS Dur : 90 ms QT Int : 350 ms P-R-T Axes : * -23 54 degrees QTcB Int : 435 ms Atrial fibrillation Abnormal ECG When compared with ECG of 20-May-2024 09:12, Atrial fibrillation has replaced Sinus rhythm ST no longer elevated in Inferior leads Confirmed by AILEEN WEEMS, LUBNA ([id number]), brands editor CARRIE URRUTIA ([id number]) on 07/01/2024 8:45:01 AM Referred By: Erick Pineda Confirmed By: LUBNA GALLAGHER MD
--- NOTE | 2024-07-01 07:46 | CR.ITP_ITS ---
Exercise - Initial Assessment Visit Session #:: 8 Physician Prescribed Exercise Modalities: Treadmill, Schwinn Airdyne AD-7 and SciFit Stepper Nutrition - Initial Assessment Weight Mgt (Other Care) Height: 5 ft 11 in Weight:: 297 lb BMI: 41.4 Psychosocial - Initial Assess Target Goals Target Goals Referral to Behavioral Health PS - Interventions: Yes: Attend Stress Management Classes Patient Health Questionnaire PHQ-9 Screening 30-Day Re-eval Assessment: 1. Little interest or pleasure in doing things: Not at all 2. Feeling down, depressed, or hopeless: Not at all 3. Trouble falling or staying asleep, or sleeping too much: Not at all 4. Feeling tired or having little energy: More than half the days 5. Poor appetite or overeating: More than half the days 6. Feeling bad about yourself -- or that you are a failure or have let yourself or your family down: Not at all 7. Trouble concentrating on things, such as reading the newspaper or watching television: Not at all 8. Moving or speaking so slowly that other people could have noticed. Or the opposite - being so fidgety or restless that you have been moving around a lot more than usual: Not at all 9. Thoughts that you would be better off , or of hurting yourself in some way: Not at all How difficult have these problems made it for you to do your work, take care of things at home, or get along with other people?: Somewhat difficult Total Score: 4 Self-Efficacy 6-Item Scale 30-Day Re-eval Assessment: We would like to know how confident you are in doing certain activities. Please select your confidence level for: Fatigue Select Number: 9 Physical Discomfort or Pain Select Number: 9 Emotional Distress Select Number: 10 Other Symptoms or Health Problems Select Number: 10 Different Tasks and Activities Select Number: 10 Medication Select Number: 9 Total Score:: 9 Nutrition Survey Nutrition Survey Instructions Scoring Instructions Exercise - 30-day Assessment Visit Date of Eval: 07/01/24 Session #:: 8 Physician Prescribed Exercise Modalities: Treadmill, Schwinn Airdyne AD-7 and SciFit Stepper Frequency: 3x/week for 12 weeks [36 sessions] Intensity: 60-80% of age predicted maximum heart rate reserve Duration: 30 - 45 minutes Current METSs:: 3.9 Target Heart Rate:: 97-122 Current RPE:: 11-14 Maximum Excercise HR:: 112 Resting Blood Pressure: 150/68 Maximum Exercise Blood Pressure: 152/84 EKG Type: NSR to ST with rare PAC's and PVC's. Pt had a new onset of Afib 06/23/24. Current Physical Activity or Exercising minutes: Afib has resolved. Outcomes & Goals Goals:: Verbalizes understanding of THR, RPE & goal METS by session 6, Documents in home exercise log/reports 30 min aerobic 5 day/wk by DC, Demonstrates accurate pulse taking by DC and Other additional outcome/goals: see below Intervention & Plan Exercise Program Goals: Instruct on personal THR & RPE, Instruct on MET level & personal MET goal, Show patient to take own pulse /validate performance until accurate, Instruct on home exercise and Other additional plan/int Physical Activity Home Exercise Physical Activity - Home Exercise: Safe Exercise, Warm-up, Self-monitoring, Cool-Down, Home Exercise > 30 min Daily and Sitting Time <3 hours/daily Outcomes & Goals Outcomes/Goals: Demonstrates correct Warm-up/exercise Cool-Down (S3) if = 2.5 METs, Verbalizes symptoms of exercise intolerance by Session 3 (S3), Demonstrate safe equipment use (S3) & follows exercise prescrition (6) and Other: See below Intervention & Plan Plan/Intervention: Instruct warm-up & cool-down if exercising at > 2 METs, Instruct on symptoms of exercise intolerance & actions to take, Instruct & monitor on saf, Assess intial functional capacity & safety risk and Other See below 30-day Reassessments 30 day Reassessments:: Progressing Reassessment Notes & Comments:: NSR to ST with rare PAC's and PVC's. Pt had a new onset of Afib 06/23/24. Report was sent to pt's physician. Afib has resolved. Exercise - 60-day Assessment Physician Prescribed Exercise Modalities: Treadmill, Schwinn Airdyne AD-7 and SciFit Stepper Exercise - 90-day Assessment Physician Prescribed Exercise Modalities: Treadmill, Schwinn Airdyne AD-7 and SciFit Stepper Exercise - Final/Discharge Physician Prescribed Exercise Modalities: Treadmill, Schwinn Airdyne AD-7 and SciFit Stepper Nutrition - 30-Day Assessment Program Goals Nutrition Program Goals Patient has diagnosis of Hyperlipidemia (ICD E78)?: Yes Visit Date of Eval: 07/01/24 Session #:: 8 Cholesterol/Lipids (Other Core Measures) Determine presence & major risk factors that modify LDL goal: Hypertension or hypertensive medication, Low HDL cholesterol <40 mg/dL*, Family history of premature CHD in Male < 55 years: female <65 yearsFa and Age men > 45 years; women >/= 55 years Outcomes/Goals: Pt IDs own risk factors & lifestyle modifications by Session 10, Verbalizes symptoms of angina & response by session 3., Pt independently manages and Other Additional Outcomes/Goals: Intervention/Plan: Advocate for lipid panel cholesterol medication if applicable, Instruct on personal lipid levels & lipid goals/NCEP guidelines, Instruct on cholesterol and Other additional plan/int Diabetes (Other Core Measures) Diabetes Type: Diagnosis Type II ICD-10 E11 Insulin dependent injection/pump?: Yes Non-Insulin Dependent?: Yes Do you monitor your blood sugar at home?: Yes Referral to Diabetic Clinic:: No Weight Mgt (Other Care) Height: 5 ft 11 in Weight:: 297 lb BMI: 41.4 Diagnosis Overweight/Obesity BMI> 30% ICD-10 E66: No Diagnosis High BMI/Morbid Obesity BMI> 35% ICD-10 Z68: No Outcomes/Goals: Pt sets, maintains & shows weight loss goal & trend during rehab and Other additional outcomes/goals Intervention/Plan: Instruct on ideal BMI & set weight loss goal w/patient, Assist pt to ID & incorporate diet changes for weight loss by S9, Refer to Structured Weight Loss program as appropriate, Encourage goal of using 250- 300dcal per session for weight loss and Other additional plan/interventions Healthy Eating Habits Will attend diet classes:: Yes Outcomes/Goals:: Consume diet rich in vegs,fruits,whole grain/high fiber,fish,lean meat, Limit sat/trans fats,cholesterol & added salts & sugars an d Other additional outcome/goals: Intervention/Plan:: Assess current eating habits and Other Additional plan/interventions 30-day Reassessments:: Progressing Reassessment Notes & Comments:: Pt will attend nutrition class with a [facility] mobile application architect. Low sodium heart healthy diet encouraged. Pt will also have the option of a 1 on 1 consult with a mobile application architect. Education Gave educational materials for:: Signs & symptoms of hypoglycemia, Signs & symptoms of hyperglycemia, Relate diabetes to coronary artery disease and Healthy eating Nutrition - 60-Day Assessment Weight Mgt (Other Care) Height: 5 ft 11 in Weight:: 297 lb BMI: 41.4 Core - 30-Day Assessment Visit Date of Eval: 07/01/24 Session #:: 8 Medication Compliance Preventative Medication(s):: Aspirin, LAZARA inhibitor, Ticagrelor/P2Y12 inhibitor, Statin/lipid, Beta james and Eliquis H/O mental health issues: depression, anxiety, or addiction?: No Doesn?t believe in the benefits of treatment?: No Believes medications are unnecessary or harmful?: No Has a concern about medication side effects?: No Expresses concern over the cost of medications?: No Outcomes/Goals: Verbalizes medications,desired effect & common side effects @ DC, Pt self-reports following medication regimen, Keeps card in wallet w/m edications listed by DC and Other additional outcome/goals: Interventions/plans: Instruct on medication effects & side effects, Review medication list w/patient every two weeks, Instruct importance of taking meds as ordered & assist problem solving and Other additional 30-day Reassessments:: Progressing Reassessment Notes & Comments:: 06/28/24 Eloquis 5 mg daily and Plavix 10 mg daily added. Tobacco Use Tobacco Use: Non-smoker Hypertension Hypertension Diagnosis:: Hypertension ICD-10 I10 Resting Blood Pressure:: 150/68 [place] [employer] Hypertension Guidelines Peak Exercise Blood Pressure:: 152/84 Outcomes/Goals: Able to verbalize/achieve optimal blood pressure <130/80, Incorporates diet changes & exercise for blood pressure control by DC and Other additional outcomes/goals Interventions/plan: Instruct on optimal blood pressure, hypertension & medications, Instruct on effects of sodium, alcohol, stress, exercise &hypertension and Other additional plan/interventions 30 day Reassessments:: Progressing Reassessment Notes & Comments:: Pt's BP's are elevated on most days. Low sodium diet and weight loss encouraged. Will continue to monitor and report to physician if necessary. Tobacco Cessation Referral Smoking Cessation Referral:: No Individual Education/Counseling:: No Education Schedule Given:: Yes Psychosocial - 30-Day Assess VIsit Date of Eval: 07/01/24 Session #:: 8 History of previous Mental disease:: No Target Goals Target Goals Psychosocial Test Tool Used:: Ferrans Power QOL Cardiac and PHQ-9 Questionnaire phq-9 Severity See PHQ-9 Score: 4 Referral to Behavioral Health PS - Interventions: Yes: Attend Stress Management Classes Outcomes/Goals: See list Psychosocial Outcomes/Goals:: ID's personal stressors & 2 strategies to manage stress by discharge and Other Additional outcome/goals: Intervention/Plan: See List Interventions/Plan:: Assess stressors,coping strategies & signs of derpression on admission, Instruct/assist pt to develop coping & personal stress Mgt strategies, Refer to Behavioral Health if appropriate, Refer to Physician if appropriate, Instruct patient to recognize signs & symptoms of depression, Instruct patient to recog and Other additional plan/intervention 30-day Reassessments: 30 day Reassessments:: Met Reassessment Notes & Comments:: Pt denies any psychosocial issues at this time. Psychosocial - 60-Day Assess Target Goals Target Goals Referral to Behavioral Health PS - Interventions: Yes: Attend Stress Management Classes Outcomes/Goals: See list Psychosocial Outcomes/Goals:: ID's personal stressors & 2 strategies to manage stress by discharge and Other Additional outcome/goals: Psychosocial - 90-Day Assess Target Goals Target Goals Referral to Behavioral Health PS - Interventions: Yes: Attend Stress Management Classes Psychosocial - Final Assessmen Target Goals Target Goals Referral to Behavioral Health PS - Interventions: Yes: Attend Stress Management Classes Nutrition - 90-Day Assessment Weight Mgt (Other Care) Height: 5 ft 11 in Weight:: 297 lb BMI: 41.4 Nutrition - Final Assessment Weight Mgt (Other Care) Height: 5 ft 11 in Weight:: 297 lb BMI: 41.4
[2024-07-01 07:50] VITALS: BP 150/68
[2024-07-01 08:12] VITALS: BP 150/68; BMI 41.4
== END 2024-07-21 23:59 ==
LOC: CR 15:15
PROVIDERS: PCP Preventive Medicine Occupational Medicine; Referring Provider Internal Medicine Cardiovascular Disease; Visit Provider Internal Medicine Cardiovascular Disease
DX: Z95.5 Presence of coronary angioplasty implant and graft (principal); I21.4 Non-ST elevation (NSTEMI) myocardial infarction; I25.10 Atherosclerotic heart disease of native coronary artery without angina pectoris; I24.9 Acute ischemic heart disease, unspecified; R07.2 Precordial pain
CPT/HCPCS: 93005; 93798

== ENCOUNTER 2024-08-20 15:15 | Outpatient (RCR) | payer BC, SELFPAY ==
[2024-07-01 08:12] VITALS: BMI 41.4
[2024-07-22 00:33] VITALS: BP 150/68
--- NOTE | 2024-07-28 10:44 | CR.ITP_ITS ---
Exercise - Initial Assessment Physician Prescribed Exercise Modalities: Treadmill, SciFit Stepper and SciFit Lateral [place] Nutrition - Initial Assessment Weight Mgt (Other Care) Height: 5 ft 11 in Weight:: 300 lb BMI: 41.8 Core - Initial Assessment Hypertension Resting Blood Pressure:: 136/88 [place] [employer] Hypertension Guidelines Psychosocial - Initial Assess Target Goals Target Goals Referral to Behavioral Health PS - Interventions: Yes: Attend Stress Management Classes Patient Health Questionnaire PHQ-9 Screening 60-Day Re-eval Assessment: 1. Little interest or pleasure in doing things: Not at all 2. Feeling down, depressed, or hopeless: Not at all 3. Trouble falling or staying asleep, or sleeping too much: Not at all 4. Feeling tired or having little energy: More than half the days 5. Poor appetite or overeating: More than half the days 6. Feeling bad about yourself -- or that you are a failure or have let yourself or your family down: Not at all 7. Trouble concentrating on things, such as reading the newspaper or watching television: Not at all 8. Moving or speaking so slowly that other people could have noticed. Or the opposite - being so fidgety or restless that you have been moving around a lot more than usual: Not at all 9. Thoughts that you would be better off , or of hurting yourself in some way: Not at all How difficult have these problems made it for you to do your work, take care of things at home, or get along with other people?: Somewhat difficult Total Score: 4 Self-Efficacy 6-Item Scale 60-Day Re-eval Assessment: We would like to know how confident you are in doing certain activities. Please select your confidence level for: Fatigue Select Number: 9 Physical Discomfort or Pain Select Number: 9 Emotional Distress Select Number: 10 Other Symptoms or Health Problems Select Number: 10 Different Tasks and Activities Select Number: 10 Medication Select Number: 9 Total Score:: 9 Nutrition Survey Nutrition Survey Instructions Scoring Instructions Exercise - 30-day Assessment Physician Prescribed Exercise Modalities: Treadmill, SciFit Stepper and SciFit Lateral Trimming Inspector Exercise - 60-day Assessment Visit Date of Eval: 07/28/24 Session #:: 19 Physician Prescribed Exercise Modalities: Treadmill, SciFit Stepper and SciFit Lateral [place] Frequency: 3x/week for 12 weeks [36 sessions] Intensity: 60-80% of age predicted maximum heart rate reserve Duration: 30 - 45 minutes Current METSs:: 4.4 Target Heart Rate:: 97-122 Current RPE:: 12-14 Maximum Excercise HR:: 114 Resting Blood Pressure: 128/72 Maximum Exercise Blood Pressure: 144/84 EKG Type: NSR mto ST with rare PAC Outcomes & Goals Goals:: Verbalizes understanding of THR, RPE & goal METS by session 6, Documents in home exercise log/reports 30 min aerobic 5 day/wk by DC, Demonstrates accurate pulse taking by DC and Other additional outcome/goals: see below Intervention & Plan Exercise Program Goals: Instruct on personal THR & RPE, Instruct on MET level & personal MET goal, Show patient to take own pulse /validate performance until accurate, Instruct on home exercise and Other additional plan/int Physical Activity Home Exercise Physical Activity - Home Exercise: Safe Exercise, Warm-up, Self-monitoring, Cool-Down, Home Exercise > 30 min Daily and Sitting Time <3 hours/daily Outcomes & Goals Outcomes/Goals: Demonstrates correct Warm-up/exercise Cool-Down (S3) if = 2.5 METs, Verbalizes symptoms of exercise intolerance by Session 3 (S3), Demonstrate safe equipment use (S3) & follows exercise prescrition (6) and Other: See below Intervention & Plan Plan/Intervention: Instruct warm-up & cool-down if exercising at > 2 METs, Instruct on symptoms of exercise intolerance & actions to take, Instruct & monitor on saf, Assess intial functional capacity & safety risk and Other See below 30-day Reassessments 30 day Reassessments:: Progressing Reassessment Notes & Comments:: Warm up and cool down explained and demonstrated. Pt is able to return demonstration is his daily sessions. Exercise - 90-day Assessment Physician Prescribed Exercise Modalities: Treadmill, SciFit Stepper and SciFit Lateral [place] Exercise - Final/Discharge Physician Prescribed Exercise Modalities: Treadmill, SciFit Stepper and SciFit Lateral Trimming Inspector Nutrition - 30-Day Assessment Weight Mgt (Other Care) Height: 5 ft 11 in Weight:: 300 lb BMI: 41.8 Nutrition - 60-Day Assessment Program Goals Nutrition Program Goals Patient has diagnosis of Hyperlipidemia (ICD E78)?: Yes Visit Date of Eval: 07/28/24 Session #:: 19 Cholesterol/Lipids (Other Core Measures) Determine presence & major risk factors that modify LDL goal: Hypertension or hypertensive medication, Low HDL cholesterol <40 mg/dL*, Family history of premature CHD in Male < 55 years: female <65 yearsFa and Age men > 45 years; women >/= 55 years Outcomes/Goals: Pt IDs own risk factors & lifestyle modifications by Session 10, Verbalizes symptoms of angina & response by session 3., Pt independently manages and Other Additional Outcomes/Goals: Intervention/Plan: Advocate for lipid panel cholesterol medication if applicable, Instruct on personal lipid levels & lipid goals/NCEP guidelines, Instruct on cholesterol and Other additional plan/int Diabetes (Other Core Measures) Diabetes Type: Diagnosis Type II ICD-10 E11 Insulin dependent injection/pump?: Yes Non-Insulin Dependent?: Yes Do you monitor your blood sugar at home?: Yes Referral to Diabetic Clinic:: No 30-day Reassessments:: Met Weight Mgt (Other Care) Height: 5 ft 11 in Weight:: 300 lb BMI: 41.8 Diagnosis Overweight/Obesity BMI> 30% ICD-10 E66: Yes Diagnosis High BMI/Morbid Obesity BMI> 35% ICD-10 Z68: Yes Outcomes/Goals: Pt sets, maintains & shows weight loss goal & trend during rehab and Other additional outcomes/goals Intervention/Plan: Instruct on ideal BMI & set weight loss goal w/patient, Assist pt to ID & incorporate diet changes for weight loss by S9, Refer to Structured Weight Loss program as appropriate, Encourage goal of using 250- 300dcal per session for weight loss and Other additional plan/interventions Healthy Eating Habits Will attend diet classes:: Yes Outcomes/Goals:: Consume diet rich in vegs,fruits,whole grain/high fiber,fish,lean meat, Limit sat/trans fats,cholesterol & added salts & sugars and Other additional outcome/goals: Intervention/Plan:: Assess current eating habits and Other Additional plan/interventions 30-day Reassessments:: Progressing Reassessment Notes & Comments:: Pt will attend nutrition class. Low sodium heart healthy diet is encouraged. Education Gave educational materials for:: Signs & symptoms of hypoglycemia, Signs & symptoms of hyperglycemia, Relate diabetes to coronary artery disease and Healthy eating Core - Final Assessment Hypertension Resting Blood Pressure:: 136/88 [place] [employer] Hypertension Guidelines Core - 60-Day Assessment Visit Date of Eval: 07/28/24 Session #:: 19 Medication Compliance Preventative Medication(s):: Aspirin, LAZARA inhibitor, Ticagrelor/P2Y12 inhibitor, Statin/lipid, Beta james and Eliquis H/O mental health issues: depression, anxiety, or addiction?: No Doesn?t believe in the benefits of treatment?: No Believes medications are unnecessary or harmful?: No Has a concern about medication side effects?: No Expresses concern over the cost of medications?: No Outcomes/Goals: Verbalizes medications,desired effect & common side effects @ DC, Pt self-reports following medication regimen, Keeps card in wallet w/medications listed by DC and Other additional outcome/goals: Interventions/plans: Instruct on medication effects & side effects, Review medication list w/patient every two weeks, Instruct importance of taking meds as ordered & assist problem solving and Other additional Tobacco Use Tobacco Use: Non-smoker Hypertension Hypertension Diagnosis:: Hypertension ICD-10 I10 Resting Blood Pressure:: 128/72 Resting Blood Pressure:: 136/88 [place] [employer] Hypertension Guidelines Peak Exercise Blood Pressure:: 144/84 Outcomes/Goals: Able to verbalize/achieve optimal blood pressure <130/80, Incorporates diet changes & exercise for blood pressure control by DC and Other additional outcomes/goals Interventions/plan: Instruct on optimal blood pressure, hypertension & medications, Instruct on effects of sodium, alcohol, stress, exercise &hypertension and Other additional plan/interventions 30 day Reassessments:: Progressing Reassessment Notes & Comments:: Pt's BP' have slightly improved. Will continue to monitor. Tobacco Cessation Referral Smoking Cessation Referral:: No Individual Education/Counseling:: No Education Schedule Given:: Yes Psychosocial - 30-Day Assess Target Goals Target Goals Referral to Behavioral Health PS - Interventions: Yes: Attend Stress Management Classes Outcomes/Goals: See list Psychosocial Outcomes/Goals:: ID's personal stressors & 2 strategies to manage stress by discharge and Other Additional outcome/goals: Psychosocial - 60-Day Assess VIsit Date of Eval: 07/28/24 Session #:: 19 History of previous Mental disease:: No Target Goals Target Goals Psychosocial Test Tool Used:: Ferr[employer] Power QOL Cardiac and PHQ-9 Questionnaire phq-9 Severity See PHQ-9 Score: 4 Referral to Behavioral Health PS - Interventions: Yes: Attend Stress Management Classes Outcomes/Goals: See list Psychosocial Outcomes/Goals:: ID's personal stressors & 2 strategies to manage stress by discharge and Other Additional outcome/goals: Intervention/Plan: See List Interventions/Plan:: Assess stressors,coping strategies & signs of derpression on admission, Instruct/assist pt to develop coping & personal stress Mgt strategies, Refer to Behavioral Health if appropriate, Refer to Physician if appropriate, Instruct patient to recognize signs & symptoms of depression, Instruct patient to recog and Other additional plan/intervention 30-day Reassessments: 30 day Reassessments:: Met Reassessment Notes & Comments:: Pt denies any psychosocial issues at this time. Psychosocial - 90-Day Assess Target Goals Target Goals Referral to Behavioral Health PS - Interventions: Yes: Attend Stress Management Classes Psychosocial - Final Assessmen Target Goals Target Goals Referral to Behavioral Health PS - Interventions: Yes: Attend Stress Management Classes Nutrition - 90-Day Assessment Weight Mgt (Other Care) Height: 5 ft 11 in Weight:: 300 lb BMI: 41.8 Nutrition - Final Assessment Weight Mgt (Other Care) Height: 5 ft 11 in Weight:: 300 lb BMI: 41.8
[2024-07-28 10:54] VITALS: BP 128/72; BMI 41.8
[2024-07-28 11:03] VITALS: BP 128/72; BP 136/88
== END 2024-08-21 23:59 ==
LOC: CR 15:15
PROVIDERS: PCP Preventive Medicine Occupational Medicine; Referring Provider Internal Medicine Cardiovascular Disease; Visit Provider Internal Medicine Cardiovascular Disease
DX: I25.10 Atherosclerotic heart disease of native coronary artery without angina pectoris (principal); I25.2 Old myocardial infarction; R07.2 Precordial pain; Z95.5 Presence of coronary angioplasty implant and graft
CPT/HCPCS: 93798

== ENCOUNTER 2024-09-15 15:15 | Outpatient (RCR) | payer BC, SELFPAY ==
[2024-07-28 10:54] VITALS: BMI 41.8
[2024-08-22 00:36] VITALS: BP 128/72; BP 136/88; BP 150/68
--- NOTE | 2024-08-27 11:39 | PCM.CR.ITP ---
Exercise - Initial Assessment Physician Prescribed Exercise Modalities: Treadmill, SciFit Stepper and SciFit Lateral [place] Nutrition - Initial Assessment Weight Mgt (Other Care) Height: 5 ft 11 in Weight:: 300 lb BMI: 41.8 Psychosocial - Initial Assess Target Goals Target Goals Referral to Behavioral Health PS - Interventions: Yes: Attend Stress Management Classes Patient Health Questionnaire PHQ-9 Screening 90-Day Re-eval Assessment: 1. Little interest or pleasure in doing things: Not at all 2. Feeling down, depressed, or hopeless: Not at all 3. Trouble falling or staying asleep, or sleeping too much: Not at all 4. Feeling tired or having little energy: More than half the days 5. Poor appetite or overeating: More than half the days 6. Feeling bad about yourself -- or that you are a failure or have let yourself or your family down: Not at all 7. Trouble concentrating on things, such as reading the newspaper or watching television: Not at all 8. Moving or speaking so slowly that other people could have noticed. Or the opposite - being so fidgety or restless that you have been moving around a lot more than usual: Not at all 9. Thoughts that you would be better off , or of hurting yourself in some way: Not at all How difficult have these problems made it for you to do your work, take care of things at home, or get along with other people?: Somewhat difficult Total Score: 4 Self-Efficacy 6-Item Scale 90-Day Re-eval Assessment: We would like to know how confident you are in doing certain activities. Please select your confidence level for: Fatigue Select Number: 9 Physical Discomfort or Pain Select Number: 9 Emotional Distress Select Number: 10 Other Symptoms or Health Problems Select Number: 10 Different Tasks and Activities Select Number: 10 Medication Select Number: 9 Total Score:: 9 Nutrition Survey Nutrition Survey Instructions Scoring Instructions Exercise - 30-day Assessment Physician Prescribed Exercise Modalities: Treadmill, SciFit Stepper and SciFit Lateral [employer] Agent Exercise - 60-day Assessment Physician Prescribed Exercise Modalities: Treadmill, SciFit Stepper and SciFit Lateral [place] Exercise - 90-day Assessment Visit Date of Eval: 08/27/24 Session #:: 30 Physician Prescribed Exercise Modalities: Treadmill, SciFit Stepper and SciFit Lateral [place] Frequency: 3x/week for 12 weeks [36 sessions] Intensity: 60-80% of age predicted maximum heart rate reserve Duration: 30 - 45 minutes Current METSs:: 5.2 Target Heart Rate:: 97-130 Current RPE:: 13 Maximum Excercise HR:: 120 Resting Blood Pressure: 140/80 Maximum Exercise Blood Pressure: 152/72 EKG Type: NSR to ST with rare PAC/PVC Outcomes & Goals Goals:: Verbalizes understanding of THR, RPE & goal METS by session 6, Documents in home exercise log/reports 30 min aerobic 5 day/wk by DC, Demonstrates accurate pulse taking by DC and Other additional outcome/goals: see below Intervention & Plan Exercise Program Goals: Instruct on personal THR & RPE, Instruct on MET level & personal MET goal, Show patient to take own pulse /validate performance until accurate, Instruct on home exercise and Other additional plan/int Physical Activity Home Exercise Physical Activity - Home Exercise: Safe Exercise, Warm-up, Self-monitoring, Cool-Down, Home Exercise > 30 min Daily and Sitting Time <3 hours/daily Outcomes & Goals Outcomes/Goals: Demonstrates correct Warm-up/exercise Cool-Down (S3) if = 2.5 METs, Verbalizes symptoms of exercise intolerance by Session 3 (S3), Demonstrate safe equipment use (S3) & follows exercise prescrition (6) and Other: See below Intervention & Plan Plan/Intervention: Instruct warm-up & cool-down if exercising at > 2 METs, Instruct on symptoms of exercise intolerance & actions to take, Instruct & monitor on saf, Assess intial functional capacity & safety risk and Other See below 30-day Reassessments 30 day Reassessments:: Progressing Reassessment Notes & Comments:: Pt has been able to increase his workloads to 5.2 METS. Encourage home exercise. Will continue to increase workloads and encourage pt to meet his exercise goals Exercise - Final/Discharge Physician Prescribed Exercise Modalities: Treadmill, SciFit Stepper and SciFit Lateral [place] Nutrition - 30-Day Assessment Weight Mgt (Other Care) Height: 5 ft 11 in Weight:: 300 lb BMI: 41.8 Nutrition - 60-Day Assessment Weight Mgt (Other Care) Height: 5 ft 11 in Weight:: 300 lb BMI: 41.8 Core - 30-Day Assessment Hypertension [employer] Hypertension Guidelines Reassessment Notes & Comments:: Pt's BP's are within AHA normal limits on some days. Encourage low sodium diet and weight loss. Will continue to monitor and report to physician if necessary Core - Final Assessment Hypertension [employer] Hypertension Guidelines Reassessment Notes & Comments:: Pt's BP's are within AHA normal limits on some days. Encourage low sodium diet and weight loss. Will continue to monitor and report to physician if necessary Core - 90 Day Assessment Visit Date of Eval: 08/27/24 Session #:: 30 Medication Compliance Preventative Medication(s):: Aspirin, LAZARA inhibitor, Ticagrelor/P2Y12 inhibitor, Statin/lipid, Beta james and Eliquis H/O mental health issues: depression, anxiety, or addiction?: No Doesn’t believe in the benefits of treatment?: No Believes medications are unnecessary or harmful?: No Has a concern about medication side effects?: No Expresses concern over the cost of medications?: No Outcomes/Goals: Verbalizes medications,desired effect & common side effects @ DC, Pt self-reports following medication regimen, Keeps card in wallet w/medications listed by DC and Other additional outcome/goals: Interventions/plans: Instruct on medication effects & side effects, Review medication list w/patient every two weeks, Instruct importance of taking meds as ordered & assist problem solving and Other additional 30-day Reassessments:: Met Reassessment Notes & Comments:: Pt is taking his meds as prescribed Tobacco Use Tobacco Use: Non-smoker Hypertension Hypertension Diagnosis:: Hypertension ICD-10 I10 Resting Blood Pressure:: 140/80 [employer] Hypertension Guidelines Peak Exercise Blood Pressure:: 152/72 Outcomes/Goals: Able to verbalize/achieve optimal blood pressure <130/80, Incorporates diet changes & exercise for blood pressure control by DC and Other additional outcomes/goals Interventions/plan: Instruct on optimal blood pressure, hypertension & medications, Instruct on effects of sodium, alcohol, stress, exercise &hypertension and Other additional plan/interventions 30 day Reassessments:: Progressing Reassessment Notes & Comments:: Pt's BP's are within AHA normal limits on some days. Encourage low sodium diet and weight loss. Will continue to monitor and report to physician if necessary Tobacco Cessation Referral Smoking Cessation Referral:: No Individual Education/Counseling:: No Education Schedule Given:: Yes Psychosocial - 30-Day Assess Target Goals Target Goals Referral to Behavioral Health PS - Interventions: Yes: Attend Stress Management Classes Psychosocial - 60-Day Assess Target Goals Target Goals Referral to Behavioral Health PS - Interventions: Yes: Attend Stress Management Classes Psychosocial - 90-Day Assess VIsit Date of Eval: 08/27/24 Session #:: 30 History of previous Mental disease:: No Target Goals Target Goals Psychosocial Test Tool Used:: PHQ-9 Questionnaire phq-9 Severity See PHQ-9 Score: 4 Referral to Behavioral Health PS - Interventions: Yes: Attend Stress Management Classes Outcomes/Goals: See list Psychosocial Outcomes/Goals:: ID's personal stressors & 2 strategies to manage stress by discharge and Other Additional outcome/goals: Intervention/Plan: See List Interventions/Plan:: Assess stressors,coping strategies & signs of derpression on admission, Instruct/assist pt to develop coping & personal stress Mgt strategies, Refer to Behavioral Health if appropriate, Refer to Physician if appropriate, Instruct patient to recognize signs & symptoms of depression, Instruct patient to recog and Other additional plan/intervention 30-day Reassessments: 30 day Reassessments:: Met Reassessment Notes & Comments:: Pt has attended stress management class. Pt denies any psychosocial issues at this time. Psychosocial - Final Assessmen Target Goals Target Goals Referral to Behavioral Health PS - Interventions: Yes: Attend Stress Management Classes Nutrition - 90-Day Assessment Program Goals Nutrition Program Goals Patient has diagnosis of Hyperlipidemia (ICD E78)?: Yes Visit Date of Eval: 08/27/24 Session #:: 30 Cholesterol/Lipids (Other Core Measures) Determine presence & major risk factors that modify LDL goal: Cigarette smoking, Hypertension or hypertensive medication, Low HDL cholesterol <40 mg/dL*, Family history of premature CHD in Male < 55 years: female <65 yearsFa and Age men > 45 years; women >/= 55 years Outcomes/Goals: Pt IDs own risk factors & lifestyle modifications by Session 10, Verbalizes symptoms of angina & response by session 3., Pt independently manages and Other Additional Outcomes/Goals: Intervention/Plan: Advocate for lipid panel cholesterol medication if applicable, Instruct on personal lipid levels & lipid goals/NCEP guidelines, Instruct on cholesterol and Other additional plan/int Diabetes (Other Core Measures) Diabetes Type: Diagnosis Type II ICD-10 E11 Insulin dependent injection/pump?: Yes Non-Insulin Dependent?: Yes Do you monitor your blood sugar at home?: Yes Referral to Diabetic Clinic:: No 30-day Reassessments:: Met Weight Mgt (Other Care) Height: 5 ft 11 in Weight:: 300 lb BMI: 41.8 Diagnosis Overweight/Obesity BMI> 30% ICD-10 E66: Yes Diagnosis High BMI/Morbid Obesity BMI> 35% ICD-10 Z68: Yes Outcomes/Goals: Pt sets, maintains & shows weight loss goal & trend during rehab and Other additional outcomes/goals Intervention/Plan: Instruct on ideal BMI & set weight loss goal w/patient, Assist pt to ID & incorporate diet changes for weight loss by S9, Refer to Structured Weight Loss program as appropriate, Encourage goal of using 250-300dcal per session for weight loss and Other additional plan/interventions Healthy Eating Habits Will attend diet classes:: Yes Outcomes/Goals:: Consume diet rich in vegs,fruits,whole grain/high fiber,fish,lean meat, Limit sat/trans fats,cholesterol & added salts & sugars and Other additional outcome/goals: Intervention/Plan:: Assess current eating habits and Other Additional plan/interventions 30-day Reassessments:: Met Reassessment Notes & Comments:: Pt has attended multiple nutrition classes. Pt understands the benefits of a heart healthy low sodium diet. Education Gave educational materials for:: Signs & symptoms of hypoglycemia, Signs & symptoms of hyperglycemia, Relate diabetes to coronary artery disease and Healthy eating Nutrition - Final Assessment Weight Mgt (Other Care) Height: 5 ft 11 in Weight:: 300 lb BMI: 41.8
[2024-08-27 11:52] VITALS: BP 140/80; BMI 41.8
== END 2024-09-20 23:59 ==
LOC: CR 15:15
PROVIDERS: PCP Preventive Medicine Occupational Medicine; Referring Provider Internal Medicine Cardiovascular Disease; Visit Provider Internal Medicine Cardiovascular Disease
DX: Z95.5 Presence of coronary angioplasty implant and graft (principal); I21.4 Non-ST elevation (NSTEMI) myocardial infarction; I25.10 Atherosclerotic heart disease of native coronary artery without angina pectoris; I24.9 Acute ischemic heart disease, unspecified; R07.2 Precordial pain
CPT/HCPCS: 93798